=== PATIENT | male | born 1985 | race African-American/Black ===

== ENCOUNTER 2020-06-26 17:31 | Emergency (ER) | payer SELFPAY ==
[2020-06-26 17:39] VITALS: BP 143/98
--- NOTE | 2020-06-26 19:17 | RADIOLOGY REPORT (SQ) ---
EXAM DESCRIPTION: FOOT LEFT COMPLETE IMAGES COMPLETED DATE/TIME: 06/26/2020 7:02 pm REASON FOR STUDY: dorsal foot pain over 4th met, hit on rock COMPARISON: None. NUMBER OF VIEWS: Three views. TECHNIQUE: AP, lateral and oblique radiographic images acquired of the left foot. LIMITATIONS: None. FINDINGS: MINERALIZATION: Normal. BONES: No acute fracture or dislocation. No worrisome bone lesions. JOINTS: No effusions. SOFT TISSUES: No soft tissue swelling. No foreign body. OTHER: No other significant finding. IMPRESSION: NEGATIVE STUDY OF THE LEFT FOOT. NO RADIOGRAPHIC EVIDENCE OF ACUTE INJURY. TECHNICAL DOCUMENTATION: JOB ID: [id number] 2010 [employer]- All Rights Reserved Reading location - IP/workstation name: [email or web address]
--- NOTE | 2020-06-26 19:47 | ER Document Report ---
ED Extremity Problem, Lower - General Chief Complaint: Foot Injury Stated Complaint: LEFT FOOT/LEG PAIN Time Seen by Provider: 06/26/20 19:45 Primary Care Provider: HUA MOORE [Primary Care Provider] - Follow up as needed - HPI Notes: 35-year-old male presents to ED for evaluation of left dorsal foot pain. Reports he was throwing something into a dumpster when he fell against a rock injured the foot. States it is painful to ambulate and he has increased swelling. Patient notes that he does not have paresthesias. Denies pain into the ankle, knee, or hip. Patient denies any open areas. Denies any other sources of injuries. - Related Data Allergies/Adverse Reactions: No Known Allergies Allergy (Unverified 06/26/20 18:45) Home Medications: denies Past Medical History - Social History Smoking Status: Current Every Day Smoker Chew tobacco use (# tins/day): No Frequency of alcohol use: daily 1-2beers Drug Abuse: None Family History: None Patient has homicidal ideation: No - Past Medical History Cardiac Medical History: Reports: Hx Hypertension - no meds Review of Systems - Review of Systems Notes: Constitutional: Negative for fever. HENT: Negative for sore throat. Eyes: Negative for visual changes. Cardiovascular: Negative for chest pain. Respiratory: Negative for shortness of breath. Gastrointestinal: Negative for abdominal pain, vomiting or diarrhea. Genitourinary: Negative for dysuria. Musculoskeletal: Negative for back pain. + for foot pain. Skin: Negative for rash. Neurological: Negative for headaches, weakness or numbness. 10 point ROS negative except as marked above and in HPI. Physical Exam - Vital signs Vitals: Temp Pulse Resp BP Pulse Ox 98.6 F 92 16 143/98 H 97 06/26/20 17:39 06/26/20 17:39 06/26/20 17:39 06/26/20 17:39 06/26/20 17:39 General: No apparent distress. Alert and oriented x3. Skin: No jaundice, pallor, or rashes. Warm and dry. Musculoskeletal: Left Foot: No ecchymosis, redness, warmth, or deformity. Muscles, tenderness, and minor swelling to the dorsal lateral midfoot. Good flexion and extension of digits 1-5 with pain. No tenderness over 5th metatarsal. Sensation is intact. Brisk capillary refill. Pedal pulses 2+ bounding bilaterally. No tenderness about the ankle, with full range of motion. No calf tenderness. Neuro: GCS 15. Course - Re-evaluation Re-evalutation: 06/26/20 20:07 35-year-old male presents to ED for evaluation of left foot injury. Patient was evaluated with x-rays. Xrays were negative for fracture or dislocation. Imaging was discussed with patient. Patient is advised that soft tissue injury or ligamentous tear fracture cannot be ruled out. Patient is advised to rest, ice and elevate the extremity. Apply ice to the affected area 20 minutes on, 20 minutes off throughout the day. Patient is given a prescription for tordol. Postop shoe and crutches to be nonweightbearing. Patient is given a referral to orthopedics for follow up. Understands indications to return to ED. Understands treatment plan. Patient is in agreement with care plan. - Vital Signs Vital signs: Temp Pulse Resp BP Pulse Ox 98.6 F 92 16 143/98 H 97 06/26/20 17:39 06/26/20 17:39 06/26/20 17:39 06/26/20 17:39 06/26/20 17:39 - Laboratory Results Critical Laboratory Results Reviewed: No Critical Results - Radiology Results Critical Radiology Results Reviewed: No Critical Results Discharge - Discharge Clinical Impression: Contusion of left foot Qualifiers: Encounter type: initial encounter Qualified Code(s): S90.32XA - Contusion of left foot, initial encounter Sprain of left foot Qualifiers: Encounter type: initial encounter Qualified Code(s): S93.602A - Unspecified sprain of left foot, initial encounter Condition: Stable Disposition: HOME, SELF-CARE Instructions: Ice Packs ([facility]), Splint Precautions ([facility]), Sprain ([facility]) Prescriptions: Ketorolac Tromethamine [Toradol 10 mg Tablet] 10 mg PO Q8HP PRN #15 tablet PRN Reason: Forms: Return to Work Referrals: LOCALMD,NO [Primary Care Provider] - Follow up as needed
== END 2020-06-26 20:01 | disposition home or self-care (01) ==
LOC: ER 17:31
DX: S93.602A Unspecified sprain of left foot, initial encounter (principal); S90.32XA Contusion of left foot, initial encounter; M79.672 Pain in left foot; W19.XXXA Unspecified fall, initial encounter; W22.8XXA Striking against or struck by other objects, initial encounter; Y93.89 Activity, other specified; F17.200 Nicotine dependence, unspecified, uncomplicated
CPT/HCPCS: 99283